=== PATIENT | female | born 1985 | race Caucasian/White ===

== ENCOUNTER 2023-11-03 21:37 | Emergency (ER) | payer OTHER ==
[2023-11-03 21:53] VITALS: BP 114/71; PULSE 116; RESP 18; TEMP 97.5; BMI 22.1
== END 2023-11-04 01:04 | disposition home or self-care (01) ==
LOC: FER 21:37
DX: F41.9 Anxiety disorder, unspecified (principal); T78.1XXA Other adverse food reactions, not elsewhere classified, initial encounter
CPT/HCPCS: 99283-25